=== PATIENT | female | born 1995 | race Caucasian/White ===

== ENCOUNTER → 2022-03-28 | Emergency (ER) | payer OTHER, SELFPAY ==
[~2022-03-28] MED LIST: Boostrix 0.5 ML (Tdap) VIAL (>/=7 yrs of age) ONE
== END ==
LOC: NAV ERS 00:42 → EDBD 00:42
DX: S00.83XA Contusion of other part of head, initial encounter (principal); F17.210 Nicotine dependence, cigarettes, uncomplicated; W20.8XXA Other cause of strike by thrown, projected or falling object, initial encounter
CPT/HCPCS: 90471; 90715